=== PATIENT | male | born 1995 | race Caucasian/White ===

== ENCOUNTER 2017-08-07 19:16 | Emergency (ER) | payer OTHER ==
--- NOTE | 2017-08-07 20:38 | RAD ---
Indication: Respiratory distress. 2 views of the chest demonstrates no mediastinal shift. Heart is of normal size and configuration. Lung curiel appear clear. IMPRESSION: No active cardiopulmonary disease is noted.
[2017-08-07 22:45] VITALS: BP 141/89
--- NOTE | 2017-08-08 04:11 | ED ---
Vivienne Thurman Julia, scribed for Corey Roberts MD on 08/07/17 at 2237 . Complex/Multi-Sys Presentation - HPI Summary HPI Summary: This patient is a 22 year old M presenting to [facility] with a chief complaint of persistent cough, sore throat, and HAQ for the past 9 weeks. Pt has multiple recent diagnoses of bronchitis. He has been prescribed Prednisone, Levaquin, and given a nebulizer with albuterol. He has had no relief with these medications. - History Of Current Complaint Chief Complaint: EDUpperRespComplaint Time Seen by Provider: 08/07/17 22:18 Hx Obtained From: Patient Onset/Duration: Gradual Onset, Lasting Weeks Timing: Constant Location: Pain At: - throat Alleviating Factor(s): nothing Associated Signs And Symptoms: Positive: Other - of persistent cough, sore throat, and HAQ Related History: Similar Episode/Diagnosed As: - bronchitis - Allergies/Home Medications Allergies/Adverse Reactions: Allergies Allergy/AdvReac Type Severity Reaction Status Date / Time No Known Allergies Allergy Verified 08/07/17 19:28 PMH/Surg Hx/FS Hx/Imm Hx Endocrine/Hematology History: Denies: Hx Diabetes Cardiovascular History: Denies: Hx Hypertension Respiratory History: Reports: Hx Asthma - EXERCISE INDUCED History: Denies: Hx Dialysis, Hx Renal Disease Infectious Disease History: No Infectious Disease History: Denies: Traveled Outside the [place] in Last 30 Days - Family History Family History: Denies FHx of Crohn's Disease or UC. - Social History Alcohol Use: Weekly Substance Use Type: Reports: None Hx Tobacco Use: No Smoking Status (MU): Never Smoked Tobacco Review of Systems Positive: Sore Throat Positive: Cough, Other - HAQ All Other Systems Reviewed And Are Negative: Yes Physical Exam - Summary Physical Exam Summary: Appearance: Well appearing, no pain distress Skin: warm, dry, reflects adequate perfusion Head/face: normal Eyes: EOMI, MICHELLE ENT: clear mucous in posterior pharynx, nasal mucous present with no significant discharge, no neck stridor, voice is hoarse Neck: supple, non-tender Respiratory: CTA, breath sounds present, good aeration in all curiel Cardiovascular: RRR, pulses symmetrical Abdomen: non-tender, soft Bowel: present Musculoskeletal: normal, strength/ROM intact Neuro: normal, sensory motor intact, A&Ox3 Vital Signs On Initial Exam: Initial Vitals Temp Pulse Resp BP Pulse Ox 98.9 F 86 16 162/91 99 08/07/17 19:20 08/07/17 19:20 08/07/17 19:20 08/07/17 19:20 08/07/17 19:20 Diagnostics - Vital Signs Vital Signs Temp Pulse Resp BP Pulse Ox 08/07/17 22:05 95 99 08/07/17 22:03 142/94 08/07/17 19:20 98.9 F 86 16 162/91 99 - Laboratory Lab Statement: Any lab studies that have been ordered have been reviewed, and results considered in the medical decision making process. - Radiology CXR Radiology Interpretation Completed By: Radiologist - No active cardiopulmonary disease is noted. ED Physician has reviewed this report. Complex Multi-Symp Course/Dx Course Of Treatment: This patient is a 22 year old M presenting to [facility] with a chief complaint of persistent cough, sore throat, and HAQ for the past 9 weeks. Pt has multiple recent diagnoses of bronchitis. He has been prescribed Prednisone, Levaquin, and given a nebulizer with albuterol. He has had no relief with these medications. I explained to him to stop use of prednisone and to use a sterile saline solution in nebulizer machine and to use a humidifer. Patient is prescribed with mucinex and Tessalon. He likely has dry airway. Xrays neg. No SOB with 100% sat. PERC applies. D/C with sx control. - Diagnoses Differential Diagnoses/HQI/PQRI: Other - pneumonia, bronchitis, PE, pleurisy Provider Diagnoses: Acute bronchitis, Physical deconditioning Discharge - Discharge Plan Condition: Fair Disposition: HOME Prescriptions: Benzonatate [TESSALON 200 MG CAP] 200 mg PO Q4H PRN #20 cap PRN Reason: Cough guaiFENesin ER TAB [Mucinex*] 600 mg PO BID #20 tab.er Referrals: [facility] - Benji JOHNSON [Medical Doctor] - Additional Instructions: Saline in nebulizer as discussed. Stop steroid. Consider stopping albuterol. Return with fever, vomiting, chest pain, worse or other concerns as discussed. Recommend outpatient Pulmonary Function Test (PFT) if symptoms persist. The documentation as recorded by the Vivienne sanches Julia accurately reflects the service I personally performed and the decisions made by Alejandra conway Kirk, MD.
== END 2017-08-07 22:44 | disposition home or self-care (01) ==
LOC: ED 19:16
DX: J20.9 Acute bronchitis, unspecified (principal); R53.81 Other malaise; R05 Cough; J02.9 Acute pharyngitis, unspecified
CPT/HCPCS: 71046; 99282